=== PATIENT | male | born 1960 ===

== ENCOUNTER 2022-09-26 08:37 | Day surgery (SDC) | payer OTHER ==
[~2022-09-26] VITALS: Ht 170.2 cm; Wt 65.3 kg
[~2022-09-26 08:37] MED LIST: GENVOYA TABLET1 EACH PO; LYVISPAH20 MG PO
== END 2022-09-26 17:35 | disposition home or self-care (01) ==
LOC: CIR.AMB 08:37
PROVIDERS: ATTEND Colon & Rectal Surgery
DX: K62.9 Disease of anus and rectum, unspecified (principal); K64.1 Second degree hemorrhoids; D12.8 Benign neoplasm of rectum; D12.9 Benign neoplasm of anus and anal canal; B20 Human immunodeficiency virus [HIV] disease; Z83.0 Family history of human immunodeficiency virus [HIV] disease; Z82.49 Family history of ischemic heart disease and other diseases of the circulatory system; Z87.891 Personal history of nicotine dependence; Z91.041 Radiographic dye allergy status; Z20.822 Contact with and (suspected) exposure to COVID-19